=== PATIENT | female | born 1985 | race Caucasian/White ===

== ENCOUNTER 2018-11-21 07:05 | Emergency (ER) | payer OTHER ==
[2018-11-21 07:21] VITALS: BP 118/76
--- NOTE | 2018-11-21 08:09 | UC ---
Throat Pain/Nasal Chad HPI - HPI Summary HPI Summary: 4 DAYS OF SORE THROAT, PAIN WITH SWALLOWING AND MILD COUGH. NO FEVER, NAUSEA OR ABDOMINAL PAIN. CHILDREN ARE GOING TO A [facility] WHERE THERE HAS BEEN STREP RECENTLY. - History of Current Complaint Chief Complaint: UCRespiratory Stated Complaint: SORE THROAT Time Seen by Provider: 11/21/18 07:12 Hx Obtained From: Patient Hx Last Menstrual Period: few days ago Onset/Duration: Gradual Onset, Lasting Days, Still Present Severity: Moderate Pain Intensity: 0 Pain Scale Used: 0-10 Numeric Cough: Nonproductive Associated Signs & Symptoms: Positive: Negative - Allergies/Home Medications Allergies/Adverse Reactions: Allergies Allergy/AdvReac Type Severity Reaction Status Date / Time Penicillins Allergy Hives Verified 11/21/18 07:21 Home Medications: Home Medications Ibuprofen 400 mg PO 11/21/18 [History] PMH/Surg Hx/FS Hx/Imm Hx Previously Healthy: Yes - Surgical History Surgical History: Yes Surgery Procedure, Year, and Place: 2 c sections - Family History Known Family History: Positive: Hypertension - Social History Alcohol Use: Occasionally Substance Use Type: None Smoking Status (MU): Never Smoked Tobacco - Immunization History Most Recent Tetanus Shot: unsure Review of Systems All Other Systems Reviewed And Are Negative: Yes Constitutional: Positive: Negative ENT: Positive: Sore Throat Respiratory: Positive: Cough Cardiovascular: Positive: Negative Gastrointestinal: Positive: Negative Physical Exam Triage Information Reviewed: Yes Appearance: Well-Appearing, No Pain Distress, Well-Nourished Vital Signs: Initial Vital Signs Temp 98.1 F 11/21/18 07:17 Pulse 82 11/21/18 07:17 Resp 18 11/21/18 07:17 BP 118/76 11/21/18 07:17 Pulse Ox 100 11/21/18 07:17 Laboratory Tests 11/21/18 07:34 Group A Strep Rapid Positive A Vital Signs Reviewed: Yes Eyes: Positive: Conjunctiva Clear ENT: Positive: Hearing grossly normal, Pharyngeal erythema, TMs normal, Tonsillar swelling. Negative: Tonsillar exudate, Muffled voice Neck: Positive: Supple, Tenderness @ - MILDLY TENDER RIGHT SPFL CERVICAL LAD, Enlarged Nodes @ - MILD RIGHT SIDED SPFL CERVICAL LAD Respiratory Exam: Normal Cardiovascular Exam: Normal Abdomen Description: Positive: Nontender, Soft Musculoskeletal: Positive: No Edema Neurological: Positive: Alert Psychological: Positive: Age Appropriate Behavior Skin: Negative: Rashes Throat Pain/Nasal Course/Dx - Differential Dx/Diagnosis Provider Diagnosis: Strep pharyngitis Discharge - Sign-Out/Discharge Documenting (check all that apply): Patient Departure All imaging exams completed and their final reports reviewed: No Studies - Discharge Plan Condition: Stable Disposition: HOME Prescriptions: Azithromycin 500 mg PO DAILY #5 tab Patient Education Materials: Strep Throat (ED) Referrals: [facility] [Outside] - If Needed Additional Instructions: STREP POSITIVE. TAKE ANTIBIOTICS FOR THE FULL COURSE. OTC CHLORASEPTIC OR CEPACOL LOZENGES AND/OR IBUPROFEN FOR SORE THROAT NEEDED ONCE SYMPTOMS RESOLVED - NEW TOOTHBRUSH DO NOT SHARE FOOD, DRINK, UTENSILS CALL THE NUMBER BELOW FOR ASSISTANCE IN ESTABLISHING WITH A PCP An additional resource available to assist in finding the appropriate physician for your health care needs is [facility] ([facility]). You may contact them by calling [phone]. - Billing Disposition and Condition Condition: STABLE Disposition: Home
== END 2018-11-21 08:03 | disposition home or self-care (01) ==
LOC: UCEAST 07:05
DX: J02.0 Streptococcal pharyngitis (principal); Z88.0 Allergy status to penicillin
CPT/HCPCS: 87651; 99212; G0463